=== PATIENT | female | born 1965 | race Caucasian/White ===

== ENCOUNTER → 2018-04-10 06:59 | Outpatient (CLI) | payer OTHER, SELFPAY ==
[2018-04-10 08:25] LABS: Color, Urine Yellow (Yellow); Glucose, Dipstick Normal (Normal); Ketone-Dipstick Negative (Negative); Leukocyte Esterase-Dipstick Negative /ul (Negative); Nitrite-Dipstick Negative (Negative); Occult Blood-Urine Negative /ul (Negative); Protein-Dipstick 15 mg/dl (Negative); Specific Gravity, Urine 1.025 (1.002-1.030); Urine Bilirubin Dipstick Negative (Negative); Urine Clarity Clear (Clear); Urine Urobilinogen Normal (Normal)
[2018-04-10 08:27] LABS: Absolute Lymphocyte Count 2.15 X10^3/ul (0.83-4.51); Absolute Neutrophil Count 5.7 X10^3/uL (2.0-7.7); Basophil# 0.03 X10^3/uL; Basophil% 0.4 % (0-1); Eosinophil# 0.03 X10^3/uL; Eosinophils% 0.4 % (0-5); Hematocrit 41.8 % (37-47); Hemoglobin 13.4 g/dl (12.0-15.0); Lymphocyte # 2.15 X10^3/ul (4.0); Lymphocyte % 25.1 % (19-41); Mean Corp Hgb Conc 32.1 g/gl (32-36); Mean Corpuscular Hgb 27.5 pg (27.0-32.0); Mean Corpuscular Volume 85.7 fL (81-99); Mean Platelet Vol. 10.9 fl (6.2-12.0); Monocyte# 0.59 X10^3/uL; Monocyte% 6.9 % (0-10); Neutrophil # 5.73 X10^3/uL (2.7-7.7); Platelet Count 220 K/mm3 (150-450); RBC Distribution Width CV 15.6 % (11.6-14.6); RBC Distribution Width SD 48.4 fl (35.1-43.9); Red Blood Count 4.88 M/mm3 (4.2-5.4); White Blood Count 8.6 K/mm3 (4.4-11.0)
[2018-04-10 08:31] LABS: POSITIVE COUNT NO; POSITIVE DIFFERENTIAL NO; POSITIVE MORPHOLOGY NO
[2018-04-10 08:50] LABS: Microalbumin,Random Urine 11.5 mg/L (NO RANGE EST.); Microalbumin:Creatinine Ratio 5.6 mg/g CRE (<30 mg/g CRE)
[2018-04-10 08:56] LABS: ALB/GLOB Ratio 0.7 RATIO (0.9-2.4); AST(SGOT) 25 U/L (15-37); Alanine Aminotransfer ALT/SGPT 25 U/L (13-56); Albumin, Serum 2.9 g/dL (3.2-5.0); Alkaline Phosphatase 110 U/L (45-117); Anion Gap 7 (5-15); BUN 18 mg/dL (7-18); BUN/Creat Ratio 33.4 RATIO (10-20); Calcium,Total 8.6 mg/dL (8.5-10.1); Chloride 105 mmol/L (98-107); Cholesterol 174 mg/dL (200); Creatinine, Serum 0.54 mg/dL (0.55-1.02); EST Glomerular Filtration Rate 125 mL/min (>60); Est Glom Filt Rate - Afr Amer 152 mL/min (>60); Globulin 4.4 g/dL (2.2-4.2); Glucose 119 mg/dL (74-106); High Density Lipoprotein 50 mg/dL; Protein, Total 7.3 g/dL (6.4-8.2); Sodium Level 139 mmol/L (136-145); Thyroid Stim Hormone (TSH) 2.43 uIU/mL (0.358-3.74); Triglycerides 110 mg/dL; Very Low Density Lipoprotein 22 mg/dL (5-40)
[2018-04-10 09:23] LABS: Bacteria 3+ /hpf (None Seen); Mucous, Urine 3+ /hpf (<or=2+); Red Blood Cells-Urine 0-5 SEEN /hpf (0-5); Squamous Epithelial Cells - UA 10-25 SEEN /hpf (5-10); White Blood Cells 0-5 SEEN /hpf (0-5)
[2018-04-12 03:06] LABS: CHOLESTEROL TOTAL 182 mg/dL (100-199); HDL-C 52 mg/dL (>39); HDL-P TOTAL 36.2 umol/L (>=30.5); SMALL LDL-P 567 nmol/L (<=527); TRIGLYCERIDES 116 mg/dL (0-149)
[2018-04-19 11:58] LABS: LDL SIZE 20.7 nm (>20.5); LDL-C 107 mg/dL (0-99); LDL-P 1321 nmol/L (<1000); LP-IR SCORE ** 57 (<=45)
== END ==
PROVIDERS: Family Provider Internal Medicine; PCP Internal Medicine; Visit Provider Internal Medicine
DX: E78.2 Mixed hyperlipidemia (principal); I10 Essential (primary) hypertension; E11.65 Type 2 diabetes mellitus with hyperglycemia
CPT/HCPCS: 36415; 80053; 80061; 81001; 82043; 82570; 83704; 84443; 85025

== ENCOUNTER → 2019-04-23 07:08 | Outpatient (CLI) | payer OTHER, SELFPAY ==
[2019-04-23 07:15] LABS: Red Blood Cells-Urine 0 SEEN /hpf (0-5); White Blood Cells 0 SEEN /hpf (0-5)
[2019-04-23 08:34] LABS: Absolute Lymphocyte Count 2.06 X10^3/ul (0.83-4.51); Absolute Neutrophil Count 6.1 X10^3/uL (2.0-7.7); Basophil# 0.03 X10^3/uL; Basophil% 0.3 % (0-1); Eosinophil# 0.05 X10^3/uL; Eosinophils% 0.6 % (0-5); Hematocrit 42.6 % (37-47); Hemoglobin 13.8 g/dl (12.0-15.0); Lymphocyte # 2.06 X10^3/ul (4.0); Lymphocyte % 23.7 % (19-41); Mean Corp Hgb Conc 32.4 g/gl (32-36); Mean Corpuscular Hgb 28.2 pg (27.0-32.0); Mean Corpuscular Volume 86.9 fL (81-99); Monocyte# 0.49 X10^3/uL; Monocyte% 5.6 % (0-10); Neutrophil # 6.05 X10^3/uL (2.7-7.7); Neutrophil % 69.6 % (47-70); Platelet Count 235 K/mm3 (150-450); RBC Distribution Width CV 15.2 % (11.6-14.6); RBC Distribution Width SD 48.2 fl (35.1-43.9); White Blood Count 8.7 K/mm3 (4.4-11.0)
[2019-04-23 08:35] LABS: Color, Urine Yellow (Yellow); Glucose, Dipstick Normal (Normal); Ketone-Dipstick 5 mg/dl (Negative); Leukocyte Esterase-Dipstick Negative /ul (Negative); Nitrite-Dipstick Negative (Negative); Occult Blood-Urine 10 /ul (Negative); Protein-Dipstick 15 mg/dl (Negative); Specific Gravity, Urine 1.025 (1.002-1.030); Urine Bilirubin Dipstick Negative (Negative); Urine Clarity Clear (Clear); Urine Urobilinogen Normal (Normal)
[2019-04-23 08:40] LABS: POSITIVE COUNT NO; POSITIVE DIFFERENTIAL NO; POSITIVE MORPHOLOGY NO
[2019-04-23 09:00] LABS: Hemoglobin A1c 7.3 % (4.2-6.3)
[2019-04-23 09:08] LABS: Microalbumin,Random Urine 20.6 mg/L (NO RANGE EST.); Microalbumin:Creatinine Ratio 8.1 mg/g CRE (<30 mg/g CRE)
[2019-04-23 09:10] LABS: ALB/GLOB Ratio 0.7 RATIO (0.9-2.4); AST(SGOT) 63 U/L (15-37); Alanine Aminotransfer ALT/SGPT 62 U/L (13-56); Albumin, Serum 3.1 g/dL (3.2-5.0); Alkaline Phosphatase 95 U/L (45-117); Anion Gap 8 (5-15); BUN 16 mg/dL (7-18); BUN/Creat Ratio 28.3 RATIO (10-20); Calcium,Total 8.7 mg/dL (8.5-10.1); Chloride 104 mmol/L (98-107); Creatinine, Serum 0.56 mg/dL (0.55-1.02); EST Glomerular Filtration Rate 118 mL/min (>60); Est Glom Filt Rate - Afr Amer 143 mL/min (>60); Globulin 4.7 g/dL (2.2-4.2); Glucose 151 mg/dL (74-106); Potassium 3.9 mmol/L (3.5-5.1); Protein, Total 7.8 g/dL (6.4-8.2); Sodium Level 141 mmol/L (136-145); Thyroid Stim Hormone (TSH) 2.02 uIU/mL (0.358-3.74)
[2019-04-23 09:30] LABS: Bacteria 2+ /hpf (None Seen); Mucous, Urine 2+ /hpf (<or=2+); Squamous Epithelial Cells - UA 5-10 SEEN /hpf (5-10)
[2019-04-25 16:07] LABS: CHOLESTEROL TOTAL 194 mg/dL (100-199); HDL-C 56 mg/dL (>39); HDL-P TOTAL 34.1 umol/L (>=30.5); SMALL LDL-P 568 nmol/L (<=527); TRIGLYCERIDES 144 mg/dL (0-149)
[2019-04-26 15:40] LABS: INSULIN RESISTANCE SCORE 42 (<=45); LDL SIZE 20.9 nm (>20.5); LDL-C 109 mg/dL (0-99); LDL-P 1442 nmol/L (<1000)
== END ==
PROVIDERS: Family Provider Internal Medicine; PCP Internal Medicine; Referring Provider Internal Medicine; Visit Provider Internal Medicine
DX: I10 Essential (primary) hypertension (principal); E11.65 Type 2 diabetes mellitus with hyperglycemia
CPT/HCPCS: 36415; 80053; 80061; 81001; 82043; 82570; 83036; 83704; 84443; 85025

== ENCOUNTER → 2019-05-02 12:35 | Outpatient (CLI) | payer OTHER, SELFPAY ==
--- NOTE | 2019-05-02 12:41 | RAD_ITS ---
STUDY: X-RAY - RIGHT KNEE REASON FOR EXAM: Female, 54 years old. Pain TECHNIQUE: 4 view(s) of the knee. COMPARISON: 03/18/2017 FINDINGS: There is no evidence of fracture or dislocation. There are stable moderate tricompartmental degenerative changes. There are no radiodense foreign bodies. RAD/Knee 4 or More Views IMPRESSION: No fracture or dislocation in the right knee. Stable moderate tricompartmental degenerative change.. Electronically Signed: Louis Mclaughlin, at 16:04 EDT Tel , Service support ,
--- NOTE | 2019-05-02 12:42 | RAD_ITS ---
STUDY: X-RAY - LEFT KNEE REASON FOR EXAM: Female, 54 years old. Pain TECHNIQUE: 4 view(s) of the knee. COMPARISON: 03/18/2017 FINDINGS: There is no evidence of fracture or dislocation. There are severe tricompartmental degenerative changes which are more pronounced when compared with the prior exam. Again noted are intra-articular loose bodies in the suprapatellar recess which are increased in size when compared with the prior exam. RAD/Knee 4 or More Views IMPRESSION: No fracture or dislocation in the left knee. Severe tricompartmental degenerative changes which are worse when compared with the prior exam. Interval increase in the previously seen intra-articular loose bodies in the suprapatellar recess.. Electronically Signed: Louis Mclaughlin, at 16:03 EDT Tel , Service support ,
== END ==
PROVIDERS: Family Provider Internal Medicine; PCP Internal Medicine; Referring Provider Internal Medicine; Visit Provider Internal Medicine
DX: M17.0 Bilateral primary osteoarthritis of knee (principal); R20.2 Paresthesia of skin
CPT/HCPCS: 73564

== ENCOUNTER → 2019-06-30 06:18 | Outpatient (CLI) | payer OTHER, SELFPAY ==
[2019-06-30 09:38] LABS: AST(SGOT) 31 U/L (15-37); Alanine Aminotransfer ALT/SGPT 33 U/L (13-56); Albumin, Serum 3.1 g/dL (3.2-5.0); Alkaline Phosphatase 113 U/L (45-117); Bilirubin, Direct 0.19 mg/dL (0.00-0.30); Globulin 4.4 g/dL (2.2-4.2); Protein, Total 7.5 g/dL (6.4-8.2)
--- NOTE | 2019-06-30 14:16 | NEURO ---
NCS and/or EMG Patient Report Ordering Doctor: Gretel Gaffney DATE OF SERVICE: 06/30/19 Emily Fish is a 54-year-old female presents for electrodiagnostic testing of the lower limbs. She reports numbness pain and cramping from the knees down to the feet. Electrodiagnostic findings: Peroneal motor nerve demonstrates normal distal latency, amplitude and conduction velocity bilaterally. Normal tibial motor response bilaterally. Peroneal and tibial F waves are within normal limits H reflex borderline prolonged bilaterally. Absent sural latency drop bilaterally. Absent right superficial peroneal response. Normal left superficial peroneal response. Plantar responses are absent. On needle EMG, all muscles tested in the lower limb showed no evidence of denervation with normal motor unit action potentials. Electrodiagnostic impression: This is an abnormal study in the lower limbs. 1. Electrodiagnostic findings suggestive of a sensory polyneuropathy. Normal motor nerve function is noted. 2. No electrodiagnostic evidence is noted for lumbosacral radiculopathy.
[2019-07-01 21:08] LABS: CHOLESTEROL TOTAL 150 mg/dL (100-199); HDL-C 52 mg/dL (>39); HDL-P TOTAL 33.1 umol/L (>=30.5); SMALL LDL-P 569 nmol/L (<=527); TRIGLYCERIDES 126 mg/dL (0-149)
[2019-07-04 13:57] LABS: INSULIN RESISTANCE SCORE 61 (<=45); LDL SIZE 20.3 nm (>20.5); LDL-C 73 mg/dL (0-99); LDL-P 969 nmol/L (<1000)
== END ==
PROVIDERS: Family Provider Internal Medicine; PCP Internal Medicine; Referring Provider Internal Medicine; Visit Provider Internal Medicine
DX: R20.2 Paresthesia of skin (principal); M25.561 Pain in right knee; M25.562 Pain in left knee; E78.2 Mixed hyperlipidemia; Z51.81 Encounter for therapeutic drug level monitoring
CPT/HCPCS: 36415; 80061; 80076; 83704; 95886; 95912

== ENCOUNTER → 2019-08-27 07:26 | Outpatient (CLI) | payer OTHER, SELFPAY ==
[2019-08-27 08:30] LABS: ALB/GLOB Ratio 0.7 RATIO (0.9-2.4); AST(SGOT) 37 U/L (15-37); Alanine Aminotransfer ALT/SGPT 45 U/L (13-56); Albumin, Serum 3.2 g/dL (3.2-5.0); Alkaline Phosphatase 114 U/L (45-117); Anion Gap 4 (5-15); BUN 15 mg/dL (7-18); BUN/Creat Ratio 24.1 RATIO (10-20); Calcium,Total 8.7 mg/dL (8.5-10.1); Chloride 105 mmol/L (98-107); Creatinine, Serum 0.62 mg/dL (0.55-1.02); EST Glomerular Filtration Rate 105 mL/min (>60); Est Glom Filt Rate - Afr Amer 128 mL/min (>60); Globulin 4.3 g/dL (2.2-4.2); Glucose 148 mg/dL (74-106); Potassium 4.4 mmol/L (3.5-5.1); Protein, Total 7.5 g/dL (6.4-8.2); Sodium Level 140 mmol/L (136-145)
== END ==
PROVIDERS: Family Provider Internal Medicine; PCP Internal Medicine; Referring Provider Internal Medicine; Visit Provider Internal Medicine
DX: I10 Essential (primary) hypertension (principal)
CPT/HCPCS: 36415; 80053

== ENCOUNTER → 2020-07-30 16:11 | Outpatient (CLI) | payer OTHER, SELFPAY ==
--- NOTE | 2020-07-30 16:14 | RAD_ITS ---
STUDY: X-RAY - LEFT KNEE REASON FOR EXAM: Left knee pain. TECHNIQUE: 4 view(s) of the knee. COMPARISON: Radiographs 05/02/2019. FINDINGS: Normal visualized distal femur. Normal visualized proximal tibia and fibula. Normal proximal tibiofibular articulation. There is severe joint space narrowing of the medial femorotibial compartment similar to the prior study. There are small marginal osteophytes without joint space narrowing of the lateral femorotibial compartment. There are marginal osteophytes and moderate joint space narrowing of the patellofemoral articulation similar to the prior study. There are multiple intra-articular bodies as on the prior study. RAD/Knee 4 or More Views IMPRESSION: Arthrosis of the medial and patellofemoral compartments. Intra-articular bodies. Electronically Signed: Rito Corona MD at 9:09 EDT Tel , Service support ,
== END ==
PROVIDERS: PCP Internal Medicine; Referring Provider Internal Medicine; Visit Provider Internal Medicine
DX: M17.12 Unilateral primary osteoarthritis, left knee (principal)
CPT/HCPCS: 73564

== ENCOUNTER 2020-09-10 18:00 | Outpatient (RCR) | payer OTHER, SELFPAY ==
--- NOTE | 2020-09-10 12:09 | HP.PTEVAL ---
Patient's Visit Information JUSTYNA CADENA is a 55 year old F referred to Physical Therapy by MICHELLE Broussard with a diagnosis of L knee unilateral primary OA. Date of Evaluation: 09/05/20 Physical Therapist: Sadi Linn DPT - Visit Plan Frequency: 2-3x /Week Duration: 4-6 Weeks Plan: Pt to trial aquatic therapy for one session and continue if she believes it went well. If not then she will continue w/ land therapy 2x/wk for 6 wks. Focus to be on increasing B knee ROM and BLE strength to facilitate a dec in knee pain allowing for inc toleration to ambulation and standing. - Subjective Pt presents this date for eval of L knee OA. Starting having B knee pain about 20 years ago, was told she needed knee replacements but was too young so they tried injections but she states it did not help. The pain gets better when she lies down at night, but is not completely relieved. Standing makes the pain worse, especially when doing the dishes or cooking. Sitting for awhile also makes the pain worse. Takes Celebrex. Uses ice for the pain and it seems to help. The pain makes her toss and turn at night. 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 Dr told her she needs to lose some weight before they try a surgical approach. - Pain L knee Pain Intensity (Out of 10): 6 Pain Intensity Range: 6, 10 - Objective POSTURE: Pt stands w/ a forward trunk posture and slight B knee flexion. PALPATION: Tenderness noted along joint line of L knee. ROM: L knee 0-8-79, R knee 0-10-90. Pain felt at end range of flexion in L knee. MMT: B hip flex 3/5; all other hip motions 4+/5. B knee flex/ext 4-/5. B ankles 4+/5 throughout. No pain reported w/ MMT. NEURO: Dec sensation to light touch B below knee. DTRs not tested. GAIT: Pt displays a waddling gait w/ dec julieta, dec L stance phase, dec B step length. TUG time: 20.2 sec - Goals Goal 1:: STG: Pt will display inc B knee ROM by 50%. Goal Time Frame: 2-4 Weeks Goal 2:: LTG: Pt will display B knee ROM of 0-0-120. Goal Time Frame: 4-6 Weeks Goal 3:: STG: Pt will display inc BLE strength by 1/2 grade. Goal Time Frame: 2-4 Weeks Goal 4:: LTG: Pt will display inc BLE strength by 1 grade. Goal Time Frame: 4-6 Weeks Goal 5:: LTG: Pt will complete a TUG in <12 sec. Goal Time Frame: 4-6 Weeks - Rehabilitation Potential Physical Therapy Diagnosis: S/s consistent w/ L knee OA. Pt reports constant L knee pain and displays dec B knee ROM, dec BLE strength, dec ability to ambulate, and dec ability to perform IADLs. PT intervention indicated to address stated deficits and inc B knee ROM and strength, inc abiltiy to safely ambulate, facilitate a dec in pain, and improve overall QOL. Rehabilitation Potential: Good - Anticipated Interventions Patient/Client Instruction: Educate patient on: Condition, Plan of Care, Risk Factors, Benefits of Fitness Program For the Purpose of:: To improve safety, To improve health and function, To foster healthy habits, To improve self management Therapeutic Exercise to Include: Strength training, Endurance training, Flexibilty training, Gait and locomotor training, In an aquatic setting, Active ROM For the Purpose of:: To decrease pain, To increase ROM, To improve muscle performance and motor function, To increase tolerance to activity/condition/position, To improve performance and independence with ADL's, To improve gait and locomotor functions, To increase flexibility/ROM, To improve safety with gait Thank you for the opportunity to evaluate your patient. For Medicare and Medicare HMO plans, please review the plan of care and approve it. It will need to be FAXED BACK to us at [phone] for Medicare purposes. For Medicare only, by signing this I certify the plan of care. Please let me know if there are questions or concerns regarding this plan of care. Physician Signature: Date:
== END 2020-09-10 19:00 | disposition home or self-care (01) ==
LOC: PT 18:00
PROVIDERS: PCP Internal Medicine; Referring Provider Registered Nurse; Visit Provider Registered Nurse
DX: M17.12 Unilateral primary osteoarthritis, left knee (principal)
CPT/HCPCS: 97113; 97161

== ENCOUNTER → 2020-12-08 06:53 | Outpatient (CLI) | payer OTHER, SELFPAY ==
[2020-12-08 07:03] LABS: Red Blood Cells-Urine 0 SEEN /hpf (0-5)
[2020-12-08 08:33] LABS: Absolute Lymphocyte Count 2.35 X10^3/uL (0.83-4.51); Absolute Neutrophil Count 5.8 X10^3/uL (2.0-7.7); Basophil# 0.05 X10^3/uL; Basophil% 0.6 % (0-1); Eosinophil# 0.05 X10^3/uL; Eosinophils% 0.6 % (0-5); Hematocrit 41.8 % (37-47); Hemoglobin 13.4 g/dL (12.0-15.0); Lymphocyte # 2.35 X10^3/ul (4.0); Lymphocyte % 26.8 % (19-41); Mean Corp Hgb Conc 32.1 g/dL (32-36); Mean Corpuscular Hgb 28.4 pg (27.0-32.0); Mean Corpuscular Volume 88.6 fL (81-99); Mean Platelet Vol. 11.2 fl (6.2-12.0); Monocyte# 0.46 X10^3/uL; Monocyte% 5.2 % (0-10); NRBC Flagged by Analyzer 0 % (0-5); Neutrophil # 5.82 X10^3/uL (2.7-7.7); Neutrophil % 66.3 % (47-70); Platelet Count 214 K/mm3 (150-450); RBC Distribution Width SD 45.1 fl (35.1-43.9); Red Blood Count 4.72 M/mm3 (4.2-5.4); White Blood Count 8.8 K/mm3 (4.4-11.0)
[2020-12-08 08:55] LABS: Color, Urine Yellow (Yellow); Glucose, Dipstick Normal (Normal); Ketone-Dipstick 5 mg/dl (Negative); Leukocyte Esterase-Dipstick 25 /ul (Negative); Nitrite-Dipstick Negative (Negative); Occult Blood-Urine Negative /ul (Negative); Protein-Dipstick Negative (Negative); Urine Bilirubin Dipstick Negative (Negative); Urine Clarity Cloudy (Clear); Urine Urobilinogen Normal (Normal)
[2020-12-08 09:04] LABS: Hemoglobin A1c 6.8 % (3.8-5.6)
[2020-12-08 09:08] LABS: ALB/GLOB Ratio 0.8 RATIO (0.9-2.4); AST(SGOT) 28 U/L (15-37); Alanine Aminotransfer ALT/SGPT 35 U/L (13-56); Albumin, Serum 3.3 g/dL (3.2-5.0); Alkaline Phosphatase 129 U/L (45-117); Anion Gap 7 (5-15); BUN 18 mg/dL (7-18); BUN/Creat Ratio 30.5 RATIO (10-20); Calcium,Total 9.2 mg/dL (8.5-10.1); Chloride 104 mmol/L (98-107); Cholesterol 136 mg/dL (200); Creatinine, Serum 0.59 mg/dL (0.55-1.02); EST Glomerular Filtration Rate 112 mL/min (>60); Est Glom Filt Rate - Afr Amer 135 mL/min (>60); Globulin 4.2 g/dL (2.2-4.2); Glucose 124 mg/dL (74-106); High Density Lipoprotein 57 mg/dL; Microalbumin,Random Urine 5.5 mg/L (NO RANGE EST.); Microalbumin:Creatinine Ratio 2.5 mg/g CRE (<30 mg/g CRE); Potassium 3.6 mmol/L (3.5-5.1); Protein, Total 7.5 g/dL (6.4-8.2); Sodium Level 140 mmol/L (136-145); Thyroid Stim Hormone (TSH) 2.04 uIU/mL (0.358-3.74); Triglycerides 113 mg/dL; Very Low Density Lipoprotein 23 mg/dL (5-40)
[2020-12-08 09:21] LABS: Bacteria 1+ /hpf (None Seen); Calcium Oxalate Crystals Ur 2+ /hpf (<or=2+); Mucous, Urine 1+ /hpf (<or=2+); Squamous Epithelial Cells - UA 10-25 SEEN /hpf (5-10); White Blood Cells 0-5 SEEN /hpf (0-5)
== END ==
PROVIDERS: PCP Internal Medicine; Visit Provider Internal Medicine
DX: I10 Essential (primary) hypertension (principal); E78.2 Mixed hyperlipidemia; E11.65 Type 2 diabetes mellitus with hyperglycemia
CPT/HCPCS: 36415; 80053; 80061; 81001; 82043; 82570; 83036; 84443; 85025

== ENCOUNTER → 2020-12-22 07:57 | Outpatient (CLI) | payer OTHER, SELFPAY ==
[2020-12-24 08:53] LABS: Hepatitis C Antibody Non-Reactive (Nonreactive)
== END ==
PROVIDERS: PCP Internal Medicine; Referring Provider Internal Medicine; Visit Provider Internal Medicine
DX: Z11.59 Encounter for screening for other viral diseases (principal)
CPT/HCPCS: 36415; 86803

== ENCOUNTER → 2021-03-23 08:15 | Outpatient (CLI) | payer OTHER, SELFPAY ==
[2021-03-23 08:20] LABS: Mucous, Urine 0 SEEN /hpf (<or=2+); Red Blood Cells-Urine 0 SEEN /hpf (0-5); White Blood Cells 0 SEEN /hpf (0-5)
[2021-03-23 08:58] LABS: Absolute Lymphocyte Count 1.71 X10^3/uL (0.83-4.51); Absolute Neutrophil Count 5.6 X10^3/uL (2.0-7.7); Basophil# 0.07 X10^3/uL; Basophil% 0.9 % (0-1); Eosinophil# 0.11 X10^3/uL; Eosinophils% 1.4 % (0-5); Hematocrit 39.2 % (37-47); Hemoglobin 12.6 g/dL (12.0-15.0); Lymphocyte # 1.71 X10^3/ul (0.83-4.51); Lymphocyte % 21.1 % (19-41); Mean Corp Hgb Conc 32.1 g/dL (32-36); Mean Corpuscular Hgb 28.3 pg (27.0-32.0); Mean Corpuscular Volume 88.1 fL (81-99); Mean Platelet Vol. 10.1 fl (6.2-12.0); Monocyte# 0.59 X10^3/uL; Monocyte% 7.3 % (0-10); NRBC Flagged by Analyzer 0 % (0-5); Neutrophil # 5.59 X10^3/uL (2.7-7.7); Neutrophil % 68.8 % (47-70); Platelet Count 235 K/mm3 (150-450); RBC Distribution Width CV 15.4 % (11.6-14.6); RBC Distribution Width SD 49.2 fl (35.1-43.9); Red Blood Count 4.45 M/mm3 (4.2-5.4); White Blood Count 8.1 K/mm3 (4.4-11.0)
[2021-03-23 09:28] LABS: Color, Urine Yellow (Yellow); Glucose, Dipstick Normal (Normal); Ketone-Dipstick Negative (Negative); Leukocyte Esterase-Dipstick Negative /ul (Negative); Nitrite-Dipstick Negative (Negative); Occult Blood-Urine Negative /ul (Negative); Protein-Dipstick Negative (Negative); Urine Bilirubin Dipstick Negative (Negative); Urine Clarity Clear (Clear); Urine Urobilinogen Normal (Normal); Urine pH 6.5 (5.0 - 8.0)
[2021-03-23 09:29] LABS: ALB/GLOB Ratio 0.7 RATIO (0.9-2.4); AST(SGOT) 25 U/L (15-37); Alanine Aminotransfer ALT/SGPT 35 U/L (13-56); Alkaline Phosphatase 105 U/L (45-117); Anion Gap 4 (5-15); BUN 15 mg/dL (7-18); BUN/Creat Ratio 23.3 RATIO (10-20); Calcium,Total 9.6 mg/dL (8.5-10.1); Chloride 104 mmol/L (98-107); Cholesterol 134 mg/dL (200); Creatinine, Serum 0.64 mg/dL (0.55-1.02); EST Glomerular Filtration Rate 101 mL/min (>60); Est Glom Filt Rate - Afr Amer 122 mL/min (>60); Ferritin 162 ng/mL (8-252); Globulin 4.4 g/dL (2.2-4.2); Glucose 126 mg/dL (74-106); High Density Lipoprotein 58 mg/dL; Iron 62 ug/dL (50-170); Iron Binding Capacity,Total 324 ug/dL (250-450); Potassium 3.8 mmol/L (3.5-5.1); Protein, Total 7.4 g/dL (6.4-8.2); Sodium Level 139 mmol/L (136-145); Thyroid Stim Hormone (TSH) 2.19 uIU/mL (0.358-3.74); Triglycerides 111 mg/dL; Very Low Density Lipoprotein 22 mg/dL (5-40)
[2021-03-23 09:40] LABS: Bacteria 2+ /hpf (None Seen); Squamous Epithelial Cells - UA 5-10 SEEN /hpf (5-10)
[2021-03-23 09:48] LABS: Microalbumin,Random Urine 9.4 mg/L (NO RANGE EST.); Microalbumin:Creatinine Ratio 10.4 mg/g CRE (<30 mg/g CRE)
== END ==
PROVIDERS: PCP Internal Medicine; Referring Provider Internal Medicine; Visit Provider Internal Medicine
DX: I10 Essential (primary) hypertension (principal); E11.65 Type 2 diabetes mellitus with hyperglycemia; E78.2 Mixed hyperlipidemia; Z86.2 Personal history of diseases of the blood and blood-forming organs and certain disorders involving the immune mechanism
CPT/HCPCS: 36415; 80053; 80061; 81001; 82043; 82570; 82728; 83540; 83550; 84443; 85025

== ENCOUNTER → 2021-08-14 13:52 | Outpatient (CLI) | payer OTHER, SELFPAY ==
--- NOTE | 2021-08-14 13:54 | ECHOCS_ITS ---
Reason For Study: Abnormal EKG Procedure This was a 2D Doppler, Color Flow transthoracic echocardiogram. Technically difficult due to patients body habitus. Contrast injection performed. The study was technically difficult. Contrast injection was performed. Exam performed in department. Left Ventricle Based upon the 2D echocardiographic and contrast enhanced images obtained there appears to be grossly normal left ventricular size, wall motion, and systolic function. The estimated ejection fraction is 55 %. Diastolic function is indeterminate. Right Ventricle Normal RV size. Normal systolic function. Atria Normal left atrium. Normal right atrium. No doppler evidence for ASD. Mitral Valve There is no mitral annular calcification. Normal mitral valve. Trivial mitral valve insufficiency. Tricuspid Valve Normal tricuspid valve. Trivial tricuspid valve insufficiency. Unable to estimate RV systolic pressure/pulmonary artery pressure due to technically difficult study. Aortic Valve Trisinus/trileaflet aortic valve. Normal aortic valve. Pulmonic Valve The pulmonic valve is not well visualized. Trivial pulmonic valve insufficiency. Great Vessels The aortic root is not well visualized. Pericardium/Pleural No pericardial effusion. Medication 22 gauge I.V. with prn adaptor inserted into right arm. Diluted definity 2ml given slow IV push to enhance endocardial definition. MMode/2D Measurements & Calculations LVIDd: 5.7 cm IVSd: 1.1 cm LA dimension: 3.6 cm LVIDs: 4.0 cm LVPWd: 1.2 cm FS: 29.5 % LAV(MOD-bp): 50.7 ml LA A4 area: 19.7 cm2 RA A4 area: 12.1 cm2 LAV(MOD-bp) Indexed: 24.3 ml/m2 LAV(MOD-sp2): 38.9 ml LAV(MOD-sp4): 53.0 ml Time Measurements MV dec time: 0.29 sec Doppler Measurements & Calculations MV E max wilver: 146.4 cm/sec Lat Peak E' Wilver: 11.2 cm/sec Med Peak E' Wilver: 10.3 cm/sec MV A max wilver: 89.6 cm/sec E/E' lat: 13.1 E/E' med: 14.2 MV E/A: 1.6 MV V2 max: 150.2 cm/sec MV P1/2t max wilver: 152.2 cm/sec Ao V2 max: 207.8 cm/sec MV max P.0 mmHg MV P1/2t: 90.2 msec Ao max P.3 mmHg MV V2 mean: 86.1 cm/sec MV dec slope: 494.1 cm/sec2 Ao V2 mean: 141.4 cm/sec MV mean P.4 mmHg Ao mean P.1 mmHg MV V2 VTI: 48.1 cm MVA(P1/2t): 2.4 cm2 Ao V2 VTI: 47.8 cm LV V1 max: 164.8 cm/sec PA V2 max: 111.7 cm/sec LV V1 max P.9 mmHg LV V1 mean P.3 mmHg LV V1 mean: 106.1 cm/sec LV V1 VTI: 37.6 cm ECHO/Echo Complete W/ Contrast Interpretation Summary The study was technically difficult. Contrast injection was performed. Based upon the 2D echocardiographic and contrast enhanced images obtained there appears to be grossly normal left ventricular size, wall motion, and systolic function. The estimated ejection fraction is 55 %. Trivial mitral valve insufficiency. Trivial tricuspid valve insufficiency. Trivial pulmonic valve insufficiency. Unable to estimate RV systolic pressure/pulmonary artery pressure due to techni madina difficult study. Diastolic function is indeterminate. Ordering Physician: Gretel Gaffney Referring Physician: Gretel Gaffney Performed By: Florencio Pereira RCS
== END ==
PROVIDERS: PCP Internal Medicine; Referring Provider Internal Medicine; Visit Provider Internal Medicine
DX: R94.31 Abnormal electrocardiogram [ECG] [EKG] (principal)
CPT/HCPCS: 93306; Q9957; A4216; C8929; J3490

== ENCOUNTER 2022-02-12 17:28 | Outpatient (RCR) | payer OTHER, SELFPAY ==
--- NOTE | 2022-02-21 07:39 | HP.PTEVAL_ITS ---
Patient's Visit Information JUSTYNA CADENA is a 57 year old F referred to Physical Therapy by Dr. Gretel Gaffney DO with a diagnosis of Bilateral sciatica. Date of Evaluation: 02/12/22 Physical Therapist: Sadi Linn DPT - Visit Plan Frequency: 1x/Week Duration: 6 Weeks Plan: Start with generalized ROM of lumbar spine. Work on neutral spine core stability. Pt. instructed on working on a walking program. - Subjective Pt. is here today for her initial evaluation with diagnosis of B sciatica. Pt. reports having increased pain for a few years, but has been progressively getting worse. She reports pain with prolonged sitting or standing, but the worse is with transitions from the either position. She reports no mech of injury. 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 She reports nothing seems to reduce her symptoms. She reports pain in B HS and calf regions (behind her knees). L side is worse than R. She is not very active outside of work, which she reports is due to pain. Pt. has taking muscle relaxors without reduction in symptoms, only takes them at night due to having to work. Pt. is sleeping okay, but does get woken up at night due to pain. She is hopeful to reduce symptoms in order to get back to all recreational and work activities without limitations. - Pain posterior LLE Pain Intensity (Out of 10): 5 Pain Intensity Range: 3, 7 Posterior RLE Pain Intensity (Out of 10): 3 Pain Intensity Range: 1, 6 - Objective POSTURE: Pt. is over wt. She has more swayback posture in stance with increase lordosis noted. PALPATION: Pt. has pain palpation of lumbar spine, slight symptoms at HS, but not much. Not much calf pain either with palpation. NEURO: Normal sensation, normal DTR of BLEs. ROM: Lumbar spine: flexion min/nil loss NE (mild increase upon returning), ext mod loss decrease NB, SB min loss bilat mild increase NW, rotation min loss NE bilat. Pt. has very tight HS and hip flexors bilaterally. MMT: 5/5 throughout distal LE. B hips: 4/5 throughout, except hip abd 4-/5. Core strength poor. GAIT: Pt. ambulates without AD, but has very methodical pattern. She has minimal arm swing bilat and increased lateral hip translation bilaterally. - Special Tests L/S Slump test left side: Negative L/S Slump test right side: Negative L/S Left Straight Leg Raise: Negative L/S Right Straight Leg Raise: Negative Lumbar Standing: Flexion - Mechanical Response: No effect Lumbar Standing: Flexion - Symptoms During Testing: Increases Lumbar Standing: Flexion - Symptoms After Testing: No worse Lumbar Standing: Extension - Mechanical Response: No effect Lumbar Standing: Extension - Symptoms During Testing: Decreases Lumbar Standing: Extension - Symptoms After Testing: No better Lumbar Standing: Right Side Glides - Mechanical Response: No effect Lumbar Standing: Right Side [place] - Symptoms During Testing: No effect Lumbar Standing: Right Side [place] - Symptoms After Testing: No effect Lumbar Standing: Left Side [place] - Mechanical Response: No effect Lumbar Standing: Left Side [place] - Symptoms During Testing: No effect Lumbar Standing: Left Side [place] - Symptoms After Testing: No effect Lumbar Lying: Flexion - Mechanical Response: No effect Lumbar Lying: Flexion - Symptoms During Testing: Decreases Lumbar Lying: Flexion - Symptoms After Testing: Better Lumbar Lying: Extension - Mechanical Response: No effect Lumbar Lying: Extension - Symptoms During Testing: Increases Lumbar Lying: Extension - Symptoms After Testing: No worse Lumbar Static: Slouched Sit - Mechanical Response: No effect Lumbar Static: Slouched Sit - Symptoms During Testing: No effect Lumbar Static: Slouched Sit - Symptoms After Testing: No effect Lumbar Static: Sitting Erect - Mechanical Response: No effect Lumbar Static: Sitting Erect - Symptoms During Testing: No effect Lumbar Static: Sitting Erect - Symptoms After Testing: No effect - Balance/Special Test Scores Lower Extremity Functional Score: 5 - Goals Goal 1:: LTG: Pt. to be I with exercises for core strengthening and postural control. Goal Time Frame: 4-6 Weeks Goal 2:: STG: pt. to be able to get up/down from chair with 0-2/10 pain in BLEs. Goal Time Frame: 2 Weeks Goal 3:: LTG: Pt. to be able to walk 500'+ with out increase in BLE pain. Goal Time Frame: 4-6 Weeks Goal 4:: LTG: pt. to be able to complete all work duties with 0-2/10 pain in BLEs. Goal Time Frame: 4-6 Weeks Goal 5:: LTG: Pt. to have full lumbar ROM without increase in BLE pain. Goal Time Frame: 4-6 Weeks Goal 6:: LTG: Pt. to have increased core and BLE strength to 5/5 throughout to reduce stress on lumbar spine with all work and functional activities. Goal Time Frame: 4-6 Weeks - Rehabilitation Potential Physical Therapy Diagnosis: Pt. has signs and symptoms consistent with B sciatica pain. Pt. has increased pain in B posterior LEs to level of distal HS. Pt. did not appear to have a directional preference today with testing. She did feel better with general mobility and spinal ROM. Pt. would benefit from PT to increase general spinal ROM, increase general fitness/mobility and increase core/hip strength. Rehabilitation Potential: Good - Anticipated Interventions Patient/Client Instruction: Educate patient on: Condition, Plan of Care, Risk Factors, Benefits of Fitness Program For the Purpose of:: To improve decision making, To facilitate caregiver knowledge, To improve self management, To prevent re-injury, To improve ability to perform tasks related to life management, To improve tolerance to ADL's Therapeutic Exercise to Include: Strength training, Power training, Endurance training, Coordination, Postural training, Flexibilty training, Gait and locomotor training, Passive ROM, Active ROM, Dynamic Lumbar Stabilization, Cheri Exercises For the Purpose of:: To decrease pain, To increase ROM, To improve nutrient delivery to tissue, To increase oxygenation perfusion, To improve muscle performance and motor function, To improve ability to perform ADL's, To improve performance and independence with ADL's, To decrease level of supervision to perform tasks, To improve health of tissue, To decrease soft tissue restriction, To increase flexibility/ROM Thank you for the opportunity to evaluate your patient. For Medicare and Medicare HMO plans, please review the plan of care and approve it. It will need to be FAXED BACK to us at [phone] for Medicare purposes. For Medicare only, by signing this I certify the plan of care. Please let me know if there are questions or concerns regarding this plan of care. Physician Signature: Date:
== END 2022-02-12 19:00 | disposition home or self-care (01) ==
LOC: PT 17:28
PROVIDERS: PCP Internal Medicine; Referring Provider Internal Medicine; Visit Provider Internal Medicine
DX: M54.31 Sciatica, right side (principal); M54.32 Sciatica, left side
CPT/HCPCS: 97110; 97161

== ENCOUNTER → 2023-05-27 | Outpatient (CLI) | payer OTHER, SELFPAY ==
--- NOTE | 2023-05-27 07:25 | BI_ITS ---
MAMMOGRAPHY - BILATERAL SCREENING 3-D TOMOSYNTHESIS REASON FOR EXAM: Female, 58 years old. Routine screening PERTINENT HISTORY: Mother with breast cancer.. TECHNIQUE: 2-D mammograms and 3-D Tomosynthesis of the breast (s) were performed. CAD was performed. COMPARISON: 2015, 2013 FINDINGS: The breast composition is heterogeneously dense that can obscure small breast masses. Scattered benign calcifications are seen. No dense spiculated masses or suspicious microcalcifications are identified. No architectural distortion is identified. There is no skin thickening or retraction. There has been no significant change since the prior study. BI/SCRN MAMM (CAD)W/YANIRA BILAT IMPRESSION: No mammographic signs of malignancy. Routine yearly mammograms recommended. ASSESSMENT CATEGORY: BIRADS Category 2: Benign. A letter regarding these results will be sent to the patient by the facility within 30 days. FOLLOW UP RECOMMENDATION: Yearly follow up mammogram recommended. (A) Approximately 10% of breast cancers are not detected by mammography. A normal mammogram should not delay biopsy of a clinically suspicious abnormality. Electronically Signed: Bashir Paulino MD at 8:47 EDT ,
== END | disposition home or self-care (01) ==
LOC: OPBI 07:23
PROVIDERS: PCP Internal Medicine; Referring Provider Internal Medicine; Visit Provider Internal Medicine
DX: Z12.31 Encounter for screening mammogram for malignant neoplasm of breast (principal); Z80.3 Family history of malignant neoplasm of breast
CPT/HCPCS: 77063; 77067

== ENCOUNTER 2023-06-29 18:30 | Outpatient (RCR) | payer OTHER, SELFPAY ==
--- NOTE | 2023-05-27 12:03 | HP.PTEVAL ---
Patient's Visit Information Visit Information Visit Information: JUSTYNA CADENA is a 58 year old F referred to Physical Therapy by Dr. Gretel Gaffney DO with a diagnosis of LBP WITH RADICULAR SYMPTOMS ,MUSCULAR STRAIN. Date of Evaluation: 05/27/23 Physical Therapist: Anders Serrano, PT, Cert MDT, OCS Visit Plan Frequency: 2x /Week Duration: 4 Weeks Plan: PT INTERVETIONS MODALTIES FOR PAIN ,POSTURAL EX'S ,DLS ,LUMABR ROM AND LE FLEXABLITY Subjective Subjective: This 58 y/o female presents to physical therapy with LBP with radicular right leg. Patient has developed LBP since for~ 4 months. Patient reaching down in cooler developed back pain. Seen DR recommended PT and tried muscle relaxers. Pain located right low and right leg. prescribed muscle relaxer. Patient aggravating factors bending ,lifting ,walking and sitting. Thus affects job demands and housework tasks. Alleviating factors rest. Patient pain can affects sleeping. Coughing/sneezing+ . Bowel/bladder -. Occasional paresthesia/tingling in leg. Patient has has PT in past. Patient pain affects QOL and function with job demands. SOCIAL: VOCATION: [employer] Pain Bilateral Back: Pain Intensity (Out of 10): 7 Pain Intensity Range: 10 Objective Objective: POSTURE: mild forward posture increase lordosis GAIT: reciprocal pattern mild forward posture antalgic gait slow julieta NEURO: occasional paresthesia/tingling right leg SYMMTRIES: align PALPATION: LS/SI/Piriformis LUMBAR ROM: flexion mod loss ,extension min/mod loss pain ,side glides min loss FLEXABILITY: hamstrings mod loss pain MMT: ( peak force) quads R 12.8,L 21.2 , hamstrings R 13.3,L 22.5 ,Hip flexion R 10.4,L 19.8 ,ankle 5/5 Special Tests L/S Slump test left side: Negative L/S Slump test right side: Positive L/S Left Straight Leg Raise: Negative L/S Right Straight Leg Raise: Positive Lumbar Standing: Flexion - Mechanical Response: No effect Lumbar Standing: Flexion - Symptoms During Testing: Increases Lumbar Standing: Flexion - Symptoms After Testing: Worse Lumbar Standing: Extension - Mechanical Response: No effect Lumbar Standing: Extension - Symptoms During Testing: Increases Lumbar Standing: Extension - Symptoms After Testing: Worse Lumbar Standing: Right Side Glides - Mechanical Response: No effect Lumbar Standing: Right Side [place] - Symptoms After Testing: No effect Lumbar Standing: Left Side [place] - Mechanical Response: No effect Lumbar Standing: Left Side [place] - Symptoms During Testing: No effect Lumbar Standing: Left Side [place] - Symptoms After Testing: No effect Balance/Special Test Scores Oswestry Low Back Score: 29 Goals Goal 1:: Patient to be I with HEP FOR BACK Goal Time Frame: 4-6 Weeks Goal 2:: Patient to improve lumbar for function of recovery zana put on shoes Goal 3:: Patient to demonstrate 50% improvement with less pain and improved function and job Goal Time Frame: 4-6 Weeks Goal 4:: Patient to improve back oswestry score by 5 points to improve QOL Goal Time Frame: 4-6 Weeks Goal 5:: Patient to improve gait pattern with less pain by 80% with less pain Goal Time Frame: 4-6 Weeks Rehabilitation Potential Physical Therapy Diagnosis: This patient has lumbar radiculopathy with pain with motion testing ,positioning ,weakness right ,antalgic gait thus benefit from skilled PT Rehabilitation Potential: Good Anticipated Interventions Patient/Client Instruction: Educate patient on: Condition and Plan of Care For the Purpose of:: To decrease pain, To increase ROM, To improve muscle performance and motor function, To improve ability to perform ADL's, To increase tolerance to activity/condition/position, To improve performance and independence with ADL's, To improve ability of physical actions for home/community/work/leisure, To improve health of tissue, To decrease soft tissue restriction, To increase flexibility/ROM and To improve endurance Therapeutic Exercise to Include: Strength training, Endurance training, Body mechanics, Postural training, Flexibilty training, Dynamic Lumbar Stabilization and Cheri Exercises For the Purpose of:: To decrease swelling/inflammation, To increase ROM, To improve muscle performance and motor function, To improve ability to perform ADL's, To increase tolerance to activity/condition/position, To improve ability of physical actions for home/community/work/leisure, To improve health of tissue, To decrease soft tissue restriction and To increase flexibility/ROM TENS: Yes IF ES: Yes Cryotherapy (ice pack, ice massage): Yes Thermo therapy (hot pack): Yes Ultrasound (thermal/non thermal): Yes For the Purpose of:: To decrease pain, To increase ROM, To improve nutrient delivery to tissue, To increase oxygenation perfusion, To improve health of tissue and To decrease soft tissue restriction Text: Thank you for the opportunity to evaluate your patient. For Medicare and Medicare HMO plans, please review the plan of care and approve it. It will need to be FAXED BACK to us at [phone] for Medicare purposes. For Medicare only, by signing this I certify the plan of care. Please let me know if there are questions or concerns regarding this plan of care. Physician Signature: Date:
== END 2023-06-29 19:00 | disposition home or self-care (01) ==
LOC: PT 18:30
PROVIDERS: PCP Internal Medicine; Referring Provider Internal Medicine; Visit Provider Internal Medicine
DX: M54.50 Low back pain, unspecified (principal); M54.31 Sciatica, right side
CPT/HCPCS: 97014; 97110; 97162; G0283

== ENCOUNTER 2024-01-22 06:57 | Day surgery (SDC) | payer OTHER, SELFPAY ==
--- NOTE | 2024-01-22 07:24 | H&P.OPEN ---
[facility] - General General Date of Service: 01/22/24 HPI Narrative JUSTYNA CADENA, is a 58 F who presents for screening colonoscopy. Patient's never had previous colonoscopy. Patient denies any family history of colon cancer. Patient has bowel movements daily denies any blood. Patient denies any chronic abdominal pain/nausea/vomiting/reflux. [facility] Medical History (Updated 01/20/24 @ 12:45 by Marta Rodriguez) Arthritis Asthma Diabetes Diabetic polyneuropathy associated with type 2 diabetes mellitus Fatty liver Fibromyalgia High cholesterol History of echocardiogram History of edema HTN (hypertension) Mixed hyperlipidemia Non-smoker SIMI (obstructive sleep apnea) Post-menopausal Shortness of breath on exertion Vitamin D deficiency Home Medications aspirin 81 mg tablet,delayed release (Adult Low Dose Aspirin) 81 mg PO DAILY 12/11/23 [History Last Taken 01/20/24] atorvastatin 20 mg tablet 20 mg PO DAILY 12/11/23 [History Last Taken 01/16/24] cholecalciferol (vitamin D3) 50 mcg (2,000 unit) capsule 50 mcg PO DAILY 12/11/23 [History Last Taken 01/16/24] ferrous sulfate 325 mg (65 mg iron) tablet 325 mg PO .Q WEEK 12/11/23 [History Last Taken 01/13/24] glucosamine 750 [id number] no1 644 mg-C 30 mg-lamberto 1 mg tablet 2 tab PO DAILY 12/11/23 [History Last Taken 01/16/24] hydrochlorothiazide 25 mg tablet 25 mg PO DAILY 12/11/23 [History Last Taken 01/16/24] lisinopril 10 mg tablet 10 mg PO DAILY 12/11/23 [History Last Taken 01/22/24 04:00] metformin 500 mg tablet 1,000 mg PO BID 12/11/23 [History Last Taken 01/16/24] metoprolol succinate 100 mg tablet,extended release 24 hr (Toprol XL) 100 mg PO DAILY 12/11/23 [History Last Taken 01/22/24 04:20] omega 8-gop-eim-fish oil 300 mg-1,000 mg capsule 1 cap PO DAILY 12/11/23 [History Last Taken 01/16/24] semaglutide 14 mg tablet (Rybelsus) 14 mg PO DAILY 12/11/23 [History Last Taken 01/15/24] Allergy/AdvReac Type Severity Reaction Status Date / Time pregabalin [From Lyrica] Allergy Swelling Verified 01/20/24 12:29 Family History (Updated 12/11/23 @ 16:02 by Erika Infante) Sister Colon polyps Surgical History History of History of lumpectomy (~1985) History of tonsillectomy Social History (Updated 12/11/23 @ 16:03 by Erika Infante) current occupational status: employed Smoking Status: Never smoker alcohol intake: never Past Medical/Surgical History Planned Operation Planned Operative Procedure/s: CSCOPE Previous Hospitalizations/Surgeries HX Hospitalizations: No Any Problems With Anesthesia: No You/Your Family Experience Fever (Hyperthermia) With Anes: No Cholinesterase deficiency: No Cardiovascular Hx Heart Attack: No Hx Hypertension: Yes (CONTROLLED WITH MED) Hx Cardiac Surgery/Stents/Etc.: No Respiratory Hx Chronic Obstructive Pulmonary Disease (COPD): No Hx Asthma: Yes Hx Emphysema: No Hx Sleep Apnea: No Hx Respiratory Tract Infection/Cold (presently): No Do You Snore Loudly (louder than talking or can be heard): Yes Do You Often Feel Tired/ Fatigued/ Sleepy Dring Daytime?: No Has Anyone Observed You Stop Breathing During Sleep?: No Result (for STOP score): Positive Hx Smoking: No Smoking Status: Never smoker Gastrointestinal Special diet followed at home: No Neurological Hx Seizures: No Does patient have nerve stimulator: No Blood Disorder Hx Anemia: No Reproduction : No Genitourinary Hx Dialysis: No Musculoskeletal Hx Arthritis: Yes Hx Rheumatoid Arthritis: No Endocrine Hx Diabetes: No Thyroid Disease: No Miscellaneous Hx Cancer: No Allergies pregabalin [From Lyrica] Allergy (Verified 01/20/24 12:29) Swelling Discharge Is Pt Admitted From a Long-Term, or a Intermediate: No After D/C, Where Do you Plan to Go: Return Home Physical Exam Const alert, oriented x3 and no apparent distress HEENT normocephalic and head/scalp atraumatic Resp normal respiratory effort Cardio regular rate GI soft to palpation and non-tender; Negative for non-distended Palpation: Negative for guarding Extremity no clubbing, cyanosis or edema Skin no rashes or lesions noted Neuro CN's II-XII intact bilaterally Psych mental status grossly normal Assessment & Plan Assessment/Plan (1) Encounter for screening for malignant neoplasm of colon: Surgery Risks - Colonoscopy I discussed with the patient the risks of the procedure: Yes Risks Include but are not Limited To: Risks include but are not limited to: Bleeding, perforation requiring further surgery, inability to complete colonoscopy requiring barium enema.
[2024-01-22 07:26] VITALS: BP 134/67; PULSE 63; RESP 18; TEMP 36.8; O2SAT 97; BMI 48.0
[2024-01-22] MEDS: Lactated Ringers 1,000 ML 15 ML IV (07:42)
[2024-01-22 08:06] LABS: Bedside Glucose 122 mg/dL (74-106)
--- NOTE | 2024-01-22 08:15 | COLBX_PTH ---
PATHOLOGY RESULTS PATIENT: JUSTYNA CADENA LOC: EN U#:[id number] AGE/SX: 58/F ROOM: RE01/22/[address]: Dr. Payton Suarez MD : 1965 BED: DIS: 01/22/2024 SPEC #: [id number] RECD: 01/22/24 11:44 STATUS: AMANDA RECristina #: [id number] ADRIANA: 01/22/24 08:[address]: Payton Suarez DEPT: SURGICAL PATHOLOGY RECD BY: Radha Urbina ENTERED: 01/22/24 11:48 SP TYPE: COLON BX OT DR: Dr. Gretel Gaffney DO Tissues: COLON BIOPSY Cecum, NOS Ascending colon Sigmoid colon biopsy Procedures: Surgery Specimen Level IV Comments: @ Specimen number changed from [id number] to [id number] @ on 01/22/24 at 1150 by PAUL. HEADER OPERATION: Colonoscopy- open access PRE-OP DIAGNOSIS: Encounter for screening for malignant neoplasm of colon TISSUE SUBMITTED: A- Hepatic flexure polyp x2, B- Cecal polyp x2, C- Ascending colon polyp x2, D- Sigmoid polyp MICROSCOPIC DIAGNOSIS A. Colonic polyp at hepatic flexure, biopsy: Fragments of tubular adenoma. B. Cecal polyps, biopsy: Fragments of tubular adenoma. C. Ascending colon polyps, biopsy: Fragments of tubular adenoma. D. Sigmoid colon polyp, biopsy: Tubular adenoma. AM:casimiro 01/25/2024 MICROSCOPIC DESCRIPTION Slides are reviewed. GROSS DESCRIPTION A. Received in fixative is one container labeled with the patient's name and designated Hepatic flexure polyp x2. The specimen consists of multiple irregular fragments of light quintanilla soft tissue that in aggregate measure 0.8 x 0.5 x 0.2 cm. The specimen is totally submitted in one cassette. B. Received in fixative is one container labeled with the patient's name and designated Cecal polyp x2. The specimen consists of multiple irregular fragments of light quintanilla soft tissue that in aggregate measure 1.2 x 0.4 x 0.1 cm. The specimen is totally submitted in one cassette. C. Received in fixative is one container labeled with the patient's name and designated Ascending colon polyp x2. The specimen consists of multiple irregular fragments of light quintanilla soft tissue that in aggregate measure 1.2 x 0.5 x 0.1 cm. The specimen is totally submitted in one cassette. D. Received in fixative is one container labeled with the patient's name and designated Sigmoid polyp. The specimen consists of a pink-red polyp measuring 0.7 x 0.7 x 0.6 cm. The presumed base is inked. The polyp is bisected and submitted entirely in one cassette. NISH/ 01/22/24 TC:5 CPT: 70862 x4
[2024-01-22 09:05] VITALS: BP 123/64; BP 134/67; PULSE 58; RESP 16; TEMP 36.6; O2SAT 99
--- NOTE | 2024-01-22 09:07 | OP.COLON_ITS ---
Patient Name: Emily Fish Procedure Date: 01/22/2024 8:15 AM Date of : 1965 Age: 58 Procedure: Colonoscopy Indications: Screening for colorectal malignant neoplasm Providers: Payton Suarez MD Medicines: Monitored Anesthesia Care Patient Profile: This is a 58 year old female. Last Colonoscopy: none. The patient's first colonoscopy is today. Complications: No immediate complications. Procedure: Pre-Anesthesia Assessment: - Prior to the procedure, a History and Physical was performed, and patient medications and allergies were reviewed. The patient's tolerance of previous anesthesia was also reviewed. The risks and benefits of the procedure and the sedation options and risks were discussed with the patient. All questions were answered, and informed consent was obtained. Prior Anticoagulants: The patient has taken no anticoagulant or antiplatelet agents except for aspirin. ASA Grade Assessment: Per anesthesia. After reviewing the risks and benefits, the patient was deemed in satisfactory condition to undergo the procedure. After I obtained informed consent, the scope was passed under direct vision. Throughout the procedure, the patient's blood pressure, pulse, and oxygen saturations were monitored continuously. The Colonoscope was introduced through the anus and advanced to the cecum, identified by the appendiceal orifice, ileocecal valve and palpation. The colonoscopy was performed without difficulty. The patient tolerated the procedure well. The quality of the bowel preparation was good. Scope In: 8:25:15 AM Scope Withdrawal Time 0 hours 24 minutes 54 seconds Scope Out: 8:59:20 AM Total Procedure Duration Time 0 hours 34 minutes 5 seconds Findings: The perianal and digital rectal examinations were normal. Multiple small-mouthed diverticula were found in the sigmoid colon and descending colon. Seven semi-pedunculated polyps were found in the sigmoid colon, hepatic flexure, ascending colon and cecum. The polyps were 3 to 8 mm in size. These polyps were removed with a hot snare. Resection and retrieval were complete. The exam was otherwise without abnormality on direct and retroflexion views. Impression: - Diverticulosis in the sigmoid colon and in the descending colon. - Seven 3 to 8 mm polyps in the sigmoid colon, at the hepatic flexure, in the ascending colon and in the cecum, removed with a hot snare. Resected and retrieved. - The examination was otherwise normal on direct and retroflexion views. Recommendation: - Discharge patient to home. - Resume previous diet. - Continue present medications. - Await pathology results. - Repeat colonoscopy in 3 years for surveillance of multiple polyps. Procedure Code(s): --- Professional --- 52506, PT, Colonoscopy, flexible; with removal of tumor(s), polyp(s), or other lesion(s) by snare technique Diagnosis Code(s): --- Professional --- Z12.11, Encounter for screening for malignant neoplasm of colon D12.5, Benign neoplasm of sigmoid colon D12.3, Benign neoplasm of transverse colon (hepatic flexure or splenic flexure) D12.2, Benign neoplasm of ascending colon D12.0, Benign neoplasm of cecum K57.30, Diverticulosis of large intestine without perforation or abscess without bleeding CPT copyright 2021 [employer]. All rights reserved. The codes documented in this report are preliminary and upon psychological assistant review may be revised to meet current compliance requirements. MD Payton Nath MD 01/22/2024 9:06:50 AM This report has been signed electronically. Number of Addenda: 0 Note Initiated On: 01/22/2024 8:15 AM
--- NOTE | 2024-01-22 09:07 | OP.CCLET_ITS ---
01/22/2024 Gretel Gaffney [id number] [facility] [address] [place] [address] Re : Colonoscopy procedure for Emily Fish Dear Dr. Gaffney This procedure was performed on Monday, January 22, 2024. My impressions and recommendations are as follows: Impressions : - Diverticulosis in the sigmoid colon and in the descending colon. - Seven 3 to 8 mm polyps in the sigmoid colon, at the hepatic flexure, in the ascending colon and in the cecum, removed with a hot snare. Resected and retrieved. - The examination was otherwise normal on direct and retroflexion views. Recommendations : - Discharge patient to home. - Resume previous diet. - Continue present medications. - Await pathology results. - Repeat colonoscopy in 3 years for surveillance of multiple polyps. My findings are described in the full procedure note, which is enclosed. If I can be of further assistance, please feel free to contact me at Doctor phone number(s): , Work: . Sincerely, MD Payton Nath MD 01/22/2024 9:06:50 AM This report has been signed electronically.
[2024-01-22 09:10] VITALS: BP 112/81; BP 134/67; PULSE 65; RESP 16; O2SAT 99
[2024-01-22 09:15] VITALS: BP 118/61; BP 134/67; PULSE 67; RESP 16; TEMP 36.2; O2SAT 99
[2024-01-22 09:34] VITALS: BP 134/67
== END 2024-01-22 09:46 | disposition home or self-care (01) ==
LOC: EN 06:57 → AC 06:58
PROVIDERS: PCP Internal Medicine; Referring Provider Internal Medicine; Visit Provider Surgery
PROC: 0DJD8ZZ Inspection of Lower Intestinal Tract, Via Natural or Artificial Opening Endoscopic (ICD-10-PCS; CPT 45378; principal; 2024-01-22 08:10)
DX: Z12.11 Encounter for screening for malignant neoplasm of colon (principal); E11.42 Type 2 diabetes mellitus with diabetic polyneuropathy; D12.0 Benign neoplasm of cecum; D12.2 Benign neoplasm of ascending colon; D12.3 Benign neoplasm of transverse colon; D12.5 Benign neoplasm of sigmoid colon; K57.30 Diverticulosis of large intestine without perforation or abscess without bleeding; I10 Essential (primary) hypertension; E78.2 Mixed hyperlipidemia; Z90.49 Acquired absence of other specified parts of digestive tract; Z79.82 Long term (current) use of aspirin; Z79.84 Long term (current) use of oral hypoglycemic drugs; Z79.899 Other long term (current) drug therapy
CPT/HCPCS: 45385; 82962; 88305; J7120; J2405

== ENCOUNTER → 2024-07-04 | Outpatient (CLI) | payer OTHER, SELFPAY ==
--- NOTE | 2024-07-04 08:03 | BI_ITS ---
MAMMOGRAPHY - BILATERAL SCREENING REASON FOR EXAM: Female, 59 years old. Routine annual screening examination. PERTINENT HISTORY: Mother with breast cancer. Remote left breast biopsy. TECHNIQUE: Digital bilateral breast yanira (3D mammographic acquisition) in the CC and MLO projections. 2-D mediolateral oblique (MLO) and craniocaudad (CC) views of both breasts were obtained. CAD: Full Field Digital Mammography with Computer Added Detection was performed. COMPARISON: Comparison is made with prior study May 27, 2023 and November 12, 2015. FINDINGS: Breast Composition: The breasts are heterogeneously dense, which may obscure small masses. There are no dominant masses or suspicious calcifications. Stable small bilateral axillary lymph nodes. No other significant abnormalities are identified. There has been no significant change since the prior study. BI/SCRN MAMM (CAD)W/YANIRA BILAT IMPRESSION: Stable bilateral screening mammogram. Yearly follow-up mammogram recommended. (A) ASSESSMENT CATEGORY: BIRADS Category 2: Benign. A letter regarding these results will be sent to the patient by the facility within 30 days. Approximately 10% of breast cancers are not detected by mammography. A normal mammogram should not delay biopsy of a clinically suspicious abnormality. [id number] Electronically Signed: Misha Sinclair MD at 8:53 EDT ,
== END | disposition home or self-care (01) ==
LOC: OPBI 08:01
PROVIDERS: PCP Internal Medicine; Referring Provider Internal Medicine; Visit Provider Internal Medicine
DX: Z12.31 Encounter for screening mammogram for malignant neoplasm of breast (principal); Z80.3 Family history of malignant neoplasm of breast
CPT/HCPCS: 77063; 77067

== ENCOUNTER → 2025-08-14 | Outpatient (CLI) | payer BC, SELFPAY ==
[2025-08-14 11:55] LABS: Mucous, Urine 0 SEEN /hpf (<or=2+)
[2025-08-14 15:45] LABS: Creatinine, Urine (random) 109.00 mg/dL (28.00-217.00); Microalbumin,Random Urine 31.5 mg/L (<20 mg/L)
[2025-08-14 15:47] LABS: Hematocrit 39.4 % (37-47); Hemoglobin 12.8 g/dL (12.0-15.0); Immature Granulocytes Count 0.040 X10^3/uL (0.0-0.0); Mean Corp Hgb Conc 32.5 g/dL (32-36); Mean Corpuscular Volume 88.3 fL (81-99); Mean Platelet Vol. 11.3 fl (6.2-12.0); NRBC Flagged by Analyzer 0 % (0-5); Platelet Count 254 K/mm3 (150-450); RBC Distribution Width CV 15.1 % (11.6-14.6); RBC Distribution Width SD 47.9 fl (35.1-43.9); Red Blood Count 4.46 M/mm3 (4.2-5.4); White Blood Count 8.3 K/mm3 (4.4-11.0)
[2025-08-14 16:16] LABS: AST(SGOT) 25 U/L (<=31); Alanine Aminotransfer ALT/SGPT 19 U/L (<=34); Albumin, Serum 4.0 g/dL (3.4-4.8); Alkaline Phosphatase 111 U/L (35-104); Anion Gap 13 (5-15); BUN 20 mg/dL (4-19); BUN/Creat Ratio 23.9 RATIO (10-20); Calcium,Total 9.8 mg/dL (7.6-11.0); Carbon Dioxide 24.1 mmol/L (21.0-32.0); Chloride 100 mmol/L (98-108); Cholesterol 150 mg/dL (<=200); Ferritin 133 ng/mL (22-378); Globulin 3.1 g/dL (2.2-4.2); Glucose 135 mg/dL (70-99); Iron 65 ug/dL (50-170); Iron Binding Capacity,Total 334 ug/dL (250-450); Iron Binding Capacity,Unsat 269 ug/dL (228-428); Low Density Lipoprotein Calc. 57 mg/dL; Potassium 4.1 mmol/L (3.3-5.1); Triglycerides 191 mg/dL; Very Low Density Lipoprotein 38 mg/dL (5-40); cholesterol:hdl ratio screen 2.72
[2025-08-14 18:12] LABS: Color, Urine Straw (Yellow); Glucose, Dipstick Normal (Normal); Ketone-Dipstick Negative (Negative); Leukocyte Esterase-Dipstick Negative /ul (Negative); Nitrite-Dipstick Negative (Negative); Occult Blood-Urine Negative /ul (Negative); Protein-Dipstick 30 mg/dl (Negative); Specific Gravity, Urine 1.010 (1.002-1.030); Urine Bilirubin Dipstick Negative (Negative)
[2025-08-14 21:46] LABS: Red Blood Cells-Urine 0-5 SEEN /hpf (0-5); Squamous Epithelial Cells - UA 10-25 SEEN /hpf (5-10)
[2025-08-14 21:47] LABS: Triple Phosphate Crystals Ur 1+ /hpf (<or=1+)
== END | disposition home or self-care (01) ==
PROVIDERS: PCP Internal Medicine; Referring Provider Internal Medicine; Visit Provider Internal Medicine
DX: R80.9 Proteinuria, unspecified (principal); E11.65 Type 2 diabetes mellitus with hyperglycemia; E78.2 Mixed hyperlipidemia; Z86.2 Personal history of diseases of the blood and blood-forming organs and certain disorders involving the immune mechanism
CPT/HCPCS: 36415; 80053; 80061; 81001; 82043; 82570; 82728; 83540; 83550; 84443; 85025

== ENCOUNTER → 2025-09-18 | Outpatient (CLI) | payer BC, SELFPAY ==
--- NOTE | 2025-09-18 10:15 | BI_ITS ---
EXAM: SCRN MAMM (CAD)W/YANIRA BILAT DATE: 09/18/2025 CLINICAL HISTORY: F, Age 60 y/o , SCREENING TECHNIQUE: Procedure Code: [id number] Modality: MG Procedure: SCRN MAMM (CAD)W/YANIRA BILAT COMPARISON: Prior exam(s) were compared FINDINGS: TISSUE DENSITY: The breasts are heterogeneously dense, which may obscure small masses. Bilateral Breast Mammographic Findings: No suspicious masses, calcifications or other abnormalities are identified. BI/SCRN MAMM (CAD)W/YANIRA BILAT IMPRESSION: No mammographic evidence of malignancy OVERALL FINAL ASSESSMENT BI-RADS 1: NEGATIVE. RECOMMENDATION: Routine annual follow-up in 1 Year Additional Recommendation none A letter with findings and recommendations will be mailed to the patient. Reading Location: [id number]
== END | disposition home or self-care (01) ==
PROVIDERS: PCP Internal Medicine; Referring Provider Internal Medicine; Visit Provider Internal Medicine
DX: Z12.31 Encounter for screening mammogram for malignant neoplasm of breast (principal)
CPT/HCPCS: 77063; 77067